=== PATIENT | male | born 1960 | race Caucasian/White ===

== ENCOUNTER 2019-01-05 11:51 | Emergency (ER) | payer SELFPAY ==
[2019-01-05 12:06] VITALS: BP 172/78
--- NOTE | 2019-01-05 12:33 | EDM.PDOC ---
ED HPI GENERAL MEDICAL PROBLEM - General Chief Complaint: Lower Extremity Injury/Pain Stated Complaint: PT HAS NEUROPATHY IN HIS FEET Time Seen by Provider: 01/05/19 11:56 Source of Information: Reports: Patient History Limitations: Reports: No Limitations - History of Present Illness INITIAL COMMENTS - FREE TEXT/NARRATIVE: HISTORY AND PHYSICAL: History of present illness: Patient is a 58-year-old male presents to the ED today with concern of medication refill. Patient is on chronic narcotic pain medication for neuropathy of his feet and has a pain contract with the provider in [place]. Patient states he comes up to [place] periodically for work. Patient states he has an appointment on January 13 with his primary care provider in [place] which is when he will neck sclerae refill of this medication. He states that his refills occur monthly and he has a monthly appointment with the last being December 12. Patient denies fever, chills, chest pain, shortness of breath, or cough. Denies headache, neck stiff ness, change in vision, syncope, or near syncope. Denies nausea, vomiting, abdominal pain, diarrhea, constipation, or dysuria. Has not noted any blood in urine or stool. Patient has been eating and drinking appropriately. Review of systems: As per history of present illness and below otherwise all systems reviewed and negative. Past medical history: As per history of present illness and as reviewed below otherwise noncontributory. Surgical history: As per history of present illness and as reviewed below otherwise noncontributory. Social history: See social history for further information Family history: As per history of present illness and as reviewed below otherwise noncontributory. Physical exam: General: Patient is alert, oriented, and in no acute distress. Patient sitting comfortably on exam table. HEENT: Atraumatic, normocephalic, pupils equal and reactive bilaterally, negative for conjunctival pallor or scleral icterus, mucous membranes moist, TMs normal bilaterally, throat clear, neck supple, nontender, trachea midline. No drooling or trismus noted. No meningeal signs. No hot potato voice noted. Lungs: Clear to auscultation, breath sounds equal bilaterally, chest nontender. Heart: S1S2, regular rate and rhythm without overt murmur Abdomen: Soft, nondistended, nontender. Negative for masses or hepatosplenomegaly. Negative for costovertebral tenderness. Pelvis: Stable nontender. Genitourinary: Deferred. Rectal: Deferred. Skin: Intact, warm, dry. No lesions or rashes noted. Extremities: Atraumatic, negative for cords or calf pain. Neurovascular unremarkable. Neuro: Awake, alert, oriented. Cranial nerves II through XII unremarkable. Cerebellum unremarkable. Motor and sensory unremarkable throughout. Exam nonfocal. Notes: Dr. Rangel verbally involved in patient care. Patient does have the bottle of oxycodone-APAP with him today in the ED and as prescribed he is able to take 1 tab every 4 hours for pain. He was given a total of 120 tabs that was prescribed and filled on December 12 2018. Patient has been using the medication as prescribed and has ran out. He does have an appointment on Jan 13 with his PCP. Will give him 30 tabs to get him to his appointment, as he has been seen here prior and has been on these medications for years. Did discuss with patient all risks vs benefits of potentially breaking his pain contract with the provider in [place]. Patient expresses understanding. Patient still has a full bottle of his gabapentin and does not need a refill of this. Voices understanding and is agreeable to plan of care. Denies any further questions or concerns at this time. Diagnostics: Patient declines all workup / diagnostics Therapeutics: None Prescription: Oxycodone-APAP 5/325 (#30) Impression: Encounter for medication refill Plan: 1. Take medication as prescribed. You can also use ibuprofen and Tylenol as directed for pain and discomfort. 2. Follow-up with your primary care provider as discussed. Return to the ED as needed and as discussed. Definitive disposition and diagnosis as appropriate pending reevaluation and review of above. Bilateral Feet Pain Score (Numeric/FACES): 10 - Related Data Allergies Allergy/AdvReac Type Severity Reaction Status Date / Time No Known Allergies Allergy Verified 01/05/19 12:03 Home Meds: Home Meds oxyCODONE HCl/Acetaminophen [oxyCODONE-Acetaminophen 5-325] 1 tab PO Q4H PRN 01/28 [History] glipiZIDE [Glipizide ER] 5 mg PO DAILY 09/24/16 [History] Diltiazem HCl [Cartia Xt] 120 mg PO DAILY 01/05/19 [History] Gabapentin [Neurontin] 600 mg PO BID 01/05/19 [History] Losartan [Cozaar] 25 mg PO DAILY 01/05/19 [History] Warfarin [Coumadin] 5 mg PO DAILY 01/05/19 [History] Past Medical History HEENT History: Reports: Other (See Below) Other HEENT History: 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, 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 Cardiovascular History: Reports: Afib, Blood Clots/VTE/DVT, CAD, High Cholesterol, Hypertension, ND, Stents, Other (See Below) Other Cardiovascular History: Stents Gastrointestinal History: Reports: Bowel Obstruction, GERD Genitourinary History: Reports: Urinary Incontinence Other Genitourinary History: ureteral stent placement, bladder removed., and has bar bladder in place Musculoskeletal History: Reports: Fracture Other Musculoskeletal History: Hammer toe fixed Neurological History: Reports: Neuropathy, Peripheral Psychiatric History: Reports: Anxiety Endocrine/Metabolic History: Reports: Diabetes, Type II Hematologic History: Reports: Blood Transfusion(s) Oncologic (Cancer) History: Reports: Bladder - Infectious Disease History Infectious Disease History: Reports: None - Past Surgical History HEENT Surgical History: Reports: Myringotomy w Tube(s) Cardiovascular Surgical History: Reports: Carotid Endarterectomy, Carotid Stents Male Surgical History: Reports: Prostatectomy Endocrine Surgical History: Reports: None Oncologic Surgical History: Reports: None Social & Family History - Family History Family Medical History: Noncontributory - Tobacco Use Smoking Status *Q: Never Smoker - Caffeine Use Caffeine Use: Reports: None - Recreational Drug Use Recreational Drug Use: No Review of Systems - Review of Systems Review Of Systems: ROS reveals no pertinent complaints other than HPI. ED EXAM, GENERAL - Physical Exam Exam: See Below (See dictation) Course - Vital Signs Last Recorded V/S: Last Vital Signs Temp 36.4 C 01/05/19 12:04 Pulse 57 L 01/05/19 12:04 Resp 17 01/05/19 12:04 BP 172/78 H 01/05/19 12:04 Pulse Ox 95 01/05/19 12:04 Departure - Departure Time of Disposition: 12:31 Disposition: Home, Self-Care 01 Clinical Impression: Medication refill - Discharge Information Instructions: Medicine Refill at the Emergency Department Referrals: PCP,Not In Area [Primary Care Provider] - Forms: ED Department Discharge Additional Instructions: The following information is given to patients seen in the emergency department who are being discharged to home. This information is to outline your options for follow-up care. We provide all patients seen in our emergency department with a follow-up referral. The need for follow-up, as well as the timing and circumstances, are variable depending upon the specifics of your emergency department visit. If you don't have a primary care physician on staff, we will provide you with a referral. We always advise you to contact your personal physician following an emergency department visit to inform them of the circumstance of the visit and for follow-up with them and/or the need for any referrals to a consulting specialist. The emergency department will also refer you to a specialist when appropriate. This referral assures that you have the opportunity for follow-up care with a specialist. All of these measure are taken in an effort to provide you with optimal care, which includes your follow-up. Under all circumstances we always encourage you to contact your private physician who remains a resource for coordinating your care. When calling for follow-up care, please make the office aware that this follow-up is from your recent emergency room visit. If for any reason you are refused follow-up, please contact the [facility] Emergency Department at and asked to speak to the emergency department charge nurse. [facility] [address] [place] [id number] [facility] [address] [place] [id number] 1. Take medication as prescribed. You can also use ibuprofen and Tylenol as directed for pain and discomfort. 2. Follow-up with your primary care provider as discussed. Return to the ED as needed and as discussed.
== END 2019-01-05 12:40 | disposition home or self-care (01) ==
LOC: MW.ED 11:51
DX: Z76.0 Encounter for issue of repeat prescription (principal); E11.42 Type 2 diabetes mellitus with diabetic polyneuropathy; I10 Essential (primary) hypertension; I25.2 Old myocardial infarction; Z95.5 Presence of coronary angioplasty implant and graft; Z79.01 Long term (current) use of anticoagulants; Z79.899 Other long term (current) drug therapy; Z96.22 Myringotomy tube(s) status
CPT/HCPCS: 99283